=== PATIENT | male | born 1955 | race Caucasian/White ===

== ENCOUNTER 2021-08-25 08:45 | Outpatient (CLI) | payer MEDICARE ==
--- NOTE | 2021-08-25 10:47 | Ultrasound Report ---
PROCEDURE: Aorta Screening INDICATIONS: TOBACCO USE TECHNIQUE: Real time scanning was performed of the aorta and iliac arteries, with image documentatio n. COMPARISON: None. FINDINGS: Aorta: Proximal aortic diameter measures 2.9 x 2.8 cm. Mid-aorta measures 2.1 x 2.1 cm. Distal aor tic diameter is 2.6 x 2.6 cm. Atheromatous change with ectasia. Suggestion of an intimal defect is s een, which may reflect a penetrating ulcer or focal dissection. Iliac arteries: Right common iliac artery measures 1.5 x 1.4 cm. Left common iliac artery measures 1.4 x 1.4 cm. IMPRESSION: 1.Query penetrating ulcer or focal dissection within the aorta. CTA is recommended. Reviewed by: Justin Ogden MD on 08/25/2021 10:46 AM PDT Approved by: Justin Ogden MD on 08/25/2021 10:46 AM PDT Station ID: [id number]
== END 2021-08-25 08:46 | disposition home or self-care (01) ==
LOC: DI 08:45
PROVIDERS: ATTEND Student in an Organized Health Care Education/Training Program
DX: Z13.6 Encounter for screening for cardiovascular disorders (principal); Z72.0 Tobacco use; R93.89 Abnormal findings on diagnostic imaging of other specified body structures

== ENCOUNTER 2021-08-25 15:19 | Outpatient (CLI) | payer MEDICARE ==
[2021-08-25 15:41] LABS: CREATININE 0.7 mg/dL (0.6-1.2)
[2021-08-25] MEDS ORDERED: IOVERSOL 320 100 ML VIAL IVP ONE ×2 (16:04→20:30)
--- NOTE | 2021-08-25 17:29 | CT Report ---
PROCEDURE: ANGIO ABDOMEN W/WO INDICATIONS: DISSECTION OF ABDOMINAL AORTA CONTRAST: IV CONTRAST: Optiray 320 ml: 100 PO CONTRAST: *NO PO CONTRAST TECHNIQUE: After the administration of intravenous contrast, 2.5 mm thick sections acquired from the diaphragm t o the symphysis. 10 mm maximum-intensity projection (MIP) reformats were then acquired. For radiati on dose reduction, the following was used: automated exposure control. COMPARISON: Aortic ultrasound performed the same day. FINDINGS: Image quality: Excellent. Aorta: Proximal abdominal aorta is normal caliber. The mid and distal abdominal aorta is normal evon ivory and demonstrates heavy circumferential mainly noncalcified atherosclerotic change versus thrombus . This results in irregularity of the opacified lumen. The distal aorta, there is a small, less than 5 mm focal protrusion of the anterior serosal surface near the origin of the inferior mesenteric matthew ry. There is underlying noncalcified atherosclerosis versus thrombus and no evidence of active extrav asation. No evidence of dissection. No periaortic inflammation or fluid collections. Mesenteric arteries: Celiac trunk, and superior mesenteric arteries appear patent. The inferior mes enteric artery is not seen arising from the aorta but is opacified by collaterals about a centimeter distal to its origin. Single renal arteries are patent bilaterally. Right pelvic arteries: Mild to moderate mixed calcified and noncalcified atherosclerosis at the righ t iliac artery origin. Internal and external iliac arteries are patent. Left pelvic arteries: Mild to moderate mixed calcified and noncalcified atherosclerosis at the left iliac artery origin. Internal and external iliac arteries are patent. Extravascular soft tissues: There are bibasilar atelectatic changes. No pleural effusions. Heart siz e is normal. Liver and spleen are normal in size and enhancement. Gallbladder is partially decompre ssed and incompletely evaluated. Biliary system is non dilated. Pancreas enhances normally. No adr enal nodules. Kidneys are normal in size and enhancement, without hydronephrosis. Non opacified bow el loops are normal in wall thickness and caliber. No free fluid or air. No retroperitoneal or mese nteric adenopathy. Mildly narrow necked fat-containing periumbilical hernia with slight stranding of the herniated fat.. No suspicious bony lesions. No vertebral body compression fractures. IMPRESSION: 1. Normal caliber aorta with heavy irregular mainly noncalcified circumferential atherosclerosis vers us circumferential thrombus. No evidence of aortic dissection. 2. There is a small focal area of aortic wall outpouching at the thrombosed origin of the inferior me senteric artery. Given NOLAN collateralization, this is likely chronic finding. 3. No evidence of penetrating ulcer or active arterial extravasation. 4. Fat-containing umbilical hernia with mild fat stranding. Correlate clinically as this may be sympt omatic with possible inflammation. Reviewed by: Hazel Stearns MD on 08/25/2021 5:27 PM PDT Approved by: Hazel Stearns MD on 08/25/2021 5:27 PM PDT Station ID: [id number]
== END 2021-08-25 15:20 | disposition home or self-care (01) ==
LOC: DI 15:19
PROVIDERS: ATTEND Student in an Organized Health Care Education/Training Program
DX: R93.89 Abnormal findings on diagnostic imaging of other specified body structures (principal); K42.9 Umbilical hernia without obstruction or gangrene; Z13.6 Encounter for screening for cardiovascular disorders; Z72.0 Tobacco use
CPT/HCPCS: 36415; 74175; 76706; 82565; Q9967

== ENCOUNTER 2023-10-16 12:06 | Emergency (ER) | payer MEDICARE ==
[2023-10-16 12:33] LABS: BASOPHILS % (AUTO) 0.4 %; EOSINOPHILS % (AUTO) 0.4 %; HCT - HEMATOCRIT 46.2 % (42.0-52.0); HGB - HEMOGLOBIN 15.2 g/dL (14.0-18.0); LYMPHOCYTES # (AUTO) 1.2 10^3/uL (1.5-3.5); LYMPHOCYTES % (AUTO) 11.5 %; MEAN CORPUSCULAR HEMOGLOBIN 28.1 pg (27.0-31.0); MEAN CORPUSCULAR HGB CONC 32.9 g/dL (32.0-36.0); MEAN CORPUSCULAR VOLUME 85.4 fL (80.0-94.0); MEAN PLATELET VOLUME 9.3 fL (7.4-11.4); MONOCYTES # (AUTO) 0.5 10^3/uL (0.0-1.0); MONOCYTES % (AUTO) 5.2 %; NEUTROPHILS # (AUTO) 8.6 10^3/uL (1.5-6.6); NEUTROPHILS % (AUTO) 81.8 %; PLT - PLATELET COUNT 232 10^3/uL (130-450); RED BLOOD COUNT 5.41 10^6/uL (4.70-6.10); WHITE BLOOD COUNT 10.5 x10^3/uL (4.8-10.8)
[2023-10-16 12:49] LABS: ALBUMIN 4.7 g/dL (3.2-5.5); ALBUMIN/GLOBULIN RATIO 2.2 (1.0-2.2); BILIRUBIN,TOTAL 0.8 mg/dL (0.2-1.0); CALCIUM 10.2 mg/dL (8.5-10.3); CREATININE 0.7 mg/dL (0.6-1.3); TOTAL PROTEIN 6.8 g/dL (6.4-8.9)
[2023-10-16 15:09] LABS: BILIRUBIN,URINE NEGATIVE (NEGATIVE); GLUCOSE, URINE (UA) >=1000 mg/dL (NEGATIVE); KETONES,URINE (UA) 15 mg/dL (NEGATIVE); LEUKOCYTE ESTERASE, URINE NEGATIVE (NEGATIVE); NITRITE,URINE NEGATIVE (NEGATIVE); OCCULT BLOOD,URINE NEGATIVE (NEGATIVE); PROTEIN,URINE NEGATIVE (NEGATIVE); UROBILINOGEN,URINE 0.2 (NORMAL) E.U./dL (NORMAL)
--- NOTE | 2023-10-16 15:09 | ED Physician Documentation ---
PD HPI ABD PAIN - Stated complaint Stated Complaint: ABD PX - Chief complaint Chief Complaint: Abd Pain - History obtained from History obtained from: Patient - History of Present Illness Pain level max: 9 Pain level now: 0 Quality: Aching, Pain Location: Periumbilical Radiation: Left flank, Right flank Improved by: Laying still Worsened by: Moving, Palpation Associated symptoms: Diarrhea. No: Fever, Nausea, Vomiting, Hematemesis, Melena, Hematochezia, Dysuria, Hematuria Recently seen: Not recently seen - Additional information Additional information: 68-year-old male presents to the emergency department abdominal pain that started yesterday. He states that he has a large umbilical hernia, scheduled to meet with a surgeon at [facility] next week. He has not had any vomiting or nausea but did have diarrhea today. Abdominal cramping and pain starting yesterday, radiating to the bilateral flanks. No urinary symptoms. No blood in the stool. He states he was having severe pain while in the waiting room but the pain has now resolved since he came back to the main area of the emergency department. Review of Systems Constitutional: denies: Fever, Chills Cardiac: denies: Chest pain / pressure Respiratory: denies: Cough GI: denies: Vomiting, Diarrhea, Hematemesis, Bloody / black stool : denies: Dysuria, Frequency, Hesitancy Skin: denies: Rash Musculoskeletal: denies: Neck pain, Back pain Neurologic: denies: Headache PD PAST MEDICAL HISTORY - Past Medical History Past Medical History: Yes Cardiovascular: Hypertension, High cholesterol Endocrine/Autoimmune: Type 2 diabetes : Benign prostate hypertrophy Other Past Medical History: polyps in the urinary tract - Past Surgical History Past Surgical History: No - Present Medications Home Medications: Ambulatory Orders Medication Instructions Recorded Confirmed Doxazosin Mesylate [Cardura Xl] 8 mg PO DAILY 10/16/23 10/16/23 Dutasteride 0.5 mg PO DAILY 10/16/23 10/16/23 Lisinopril [Zestril] 20 mg PO DAILY 10/16/23 10/16/23 Meloxicam 15 mg PO DAILY 10/16/23 10/16/23 Simvastatin [Zocor] 20 mg PO DAILY 10/16/23 10/16/23 - Allergies Allergies/Adverse Reactions: Allergies Allergy/AdvReac Type Severity Reaction Status Date / Time No Known Drug Allergies Allergy Verified 10/16/23 12:20 - Social History Does the pt smoke?: No Smoking Status: Never smoker Does the pt drink ETOH?: No Substance Use and Type: Marijuana - Immunizations Immunizations are current?: Yes PD ED PE NORMAL - Vitals Vital signs reviewed: Yes - General General: Alert and oriented X 3, No acute distress - HEENT HEENT: PERRL, Moist mucous membranes - Neck Neck: Supple, no meningeal sign - Cardiac Cardiac: RRR, Strong equal pulses - Respiratory Respiratory: No respiratory distress, Clear bilaterally - Abdomen Abdomen: Normal bowel sounds, Soft, Non distended, Other (Large left ventral/periumbilical hernia. Easily reducible.) - Back Back: No CVA TTP, No spinal TTP - Derm Derm: Warm and dry - Extremities Extremities: No edema - Neuro Neuro: Alert and oriented X 3 - Psych Psych: Normal mood, Normal affect Results - Vitals Vitals: Vital Signs - 24 hr 10/16/23 10/16/23 10/16/23 12:17 15:17 16:47 Temperature 36.7 C 36.6 C Heart Rate 90 82 78 Respiratory 16 18 17 Rate Blood Pressure 170/82 H 149/75 H 154/75 H O2 Saturation 99 97 96 Oxygen O2 Source Room air - Labs Labs: Laboratory Tests 10/16/23 10/16/23 10/16/23 12:28 12:28 15:02 WBC 10.5 RBC 5.41 Hgb 15.2 Hct 46.2 MCV 85.4 MCH 28.1 MCHC 32.9 RDW 14.0 Plt Count 232 MPV 9.3 Neut # (Auto) 8.6 H Lymph # (Auto) 1.2 L Johnston # (Auto) 0.5 Eos # (Auto) 0.0 Baso # (Auto) 0.0 Absolute Nucleated RBC 0.00 Nucleated RBC % 0.0 Sodium 138 Potassium 4.0 Chloride 104 Carbon Dioxide 25 Anion Gap 9.0 BUN 20 Creatinine 0.7 Estimated GFR (MDRD) 112 Glucose 114 H Calcium 10.2 Total Bilirubin 0.8 AST 10 ALT 19 Alkaline Phosphatase 61 Total Protein 6.8 Albumin 4.7 Globulin 2.1 Albumin/Globulin Ratio 2.2 Lipase 21 Urine Color YELLOW Urine Clarity CLEAR Urine pH 6.0 Ur Specific [place] 1.020 Urine Protein NEGATIVE Urine Glucose (UA) >=1000 H Urine Ketones 15 H Urine Occult Blood NEGATIVE Urine Nitrite NEGATIVE Urine Bilirubin NEGATIVE Urine Urobilinogen 0.2 (NORMAL) Ur Leukocyte Esterase NEGATIVE Ur Microscopic Review NOT INDICATED Urine Culture Comments NOT INDICATED - Rads (name of study) Abdomen/pelvis CT Relevant Findings:: Final report received, See rad report PD Medical Decision Making - ED course Complexity details: reviewed results, re-evaluated patient, considered differential, d/w patient ED course: 60-year-old male presents to the emergency department with abdominal pain starting yesterday, worsening today but resolved when he was brought back to the main emergency department from the waiting room. No vomiting. CT scan does not show any acute abnormalities. Does have some bowel inside the hernia sac. No evidence of incarceration currently. The hernia is easily reducible. Possible that there was stool stuck in the loop of bowel that is in the hernia and that caused pain. He states he takes Ex-Lax daily to help prevent any constipation. Recommend that he drink plenty of fluids at home. Recommend that he follow-up with his surgeon on Tuesday as scheduled. Recommend that he return if he worsens including worsening pain, unable to reduce the hernia or any new or worrisome symptoms. No evidence of perforation or abscess. Patient counseled regarding signs and symptoms for which I believe and urgent re- evaluation would be necessary. Patient with good understanding of and agreement to plan and is comfortable going home at this time This document was made in part using voice recognition software. While efforts are made to proofread this document, sound alike and grammatical errors may occur. Departure - Departure Disposition: Home, Self Care Clinical Impression: Ventral hernia without obstruction or gangrene Condition: Good Instructions: ED Hernia Inguinal Follow-Up: TYSHAWN STERN MD [Primary Care Provider] - Comments: Please follow-up with your surgeon on Tuesday as scheduled. Please return if you develop increasing pain, are unable to push the hernia back and or other new or worrisome problems. Your CT scan is below. EXAM: [id number] CT/ABPEW ([id number]) PROCEDURE: CT abdomen pelvis with contrast INDICATIONS: LLQ abd pain TECHNIQUE: Helical axial CT of the abdomen and pelvis was obtained after intravenous contrast administration and reformatted in multiple planes. Radiation dose reduction was achieved using automated exposure control or adjustment of mA and/or kV according to patient size. COMPARISON: 10/25/2021 FINDINGS: Lower thorax: The lung bases are clear. Heart size normal. No hiatal hernia. Liver: Normal in size and attenuation. No contour deformity present. Biliary system: No calcified cholelithiasis or pericholecystic inflammation. No evidence of bile duct dilatation. Pancreas: Unremarkable without mass or inflammation evident. Spleen: Normal in size and density. Adrenals: Normal morphology and density. Reproductive system: Unremarkable as visualized. Urinary system: Normal renal size and attenuation. No renal calculi, hydronephrosis, or solid mass present. Urinary bladder unremarkable. Gastrointestinal system: The bowel appears unremarkable with no evidence of bowel obstruction or inflammation. The stomach appears unremarkable. Multiple diverticula arise from the sigmoid colon without evidence of diverticulitis. Peritoneal spaces: No mesenteric or retroperitoneal adenopathy. No free air. No free fluid. Vasculature: The IVC, aorta and iliac vasculature are unremarkable. Abdominal wall: No ventral hernia contains bowel and peritoneal fat without obstruction. Musculoskeletal: Normal bone mineralization. No acute fractures. IMPRESSION: Mild sigmoid diverticulosis without evidence of diverticulitis. No bowel obstruction or abscess. No free air. Ventral hernia contains bowel without obstruction Forms: PCP List Discharge Date/Time: 10/16/23 16:49
[2023-10-16 15:13] LABS: CLARITY,URINE CLEAR (CLEAR)
[2023-10-16] MEDS ORDERED: iohexoL-300 100 ML VIAL ONE (15:13)
[2023-10-16] MEDS: iohexoL-300 100 ML VIAL IVP ONE (15:40)
--- NOTE | 2023-10-16 15:54 | CT Report ---
PROCEDURE: CT abdomen pelvis with contrast INDICATIONS: LLQ abd pain TECHNIQUE: Helical axial CT of the abdomen and pelvis was obtained after intravenous contrast adminis tration and reformatted in multiple planes. Radiation dose reduction was achieved using automated exp osure control or adjustment of mA and/or kV according to patient size. COMPARISON: 10/25/2021 FINDINGS: Lower thorax: The lung bases are clear. Heart size normal. No hiatal hernia. Liver: Normal in size and attenuation. No contour deformity present. Biliary system: No calcified cholelithiasis or pericholecystic inflammation. No evidence of bile du ct dilatation. Pancreas: Unremarkable without mass or inflammation evident. Spleen: Normal in size and density. Adrenals: Normal morphology and density. Reproductive system: Unremarkable as visualized. Urinary system: Normal renal size and attenuation. No renal calculi, hydronephrosis, or solid mass p resent. Urinary bladder unremarkable. Gastrointestinal system: The bowel appears unremarkable with no evidence of bowel obstruction or inf lammation. The stomach appears unremarkable. Multiple diverticula arise from the sigmoid colon witho ut evidence of diverticulitis. Peritoneal spaces: No mesenteric or retroperitoneal adenopathy. No free air. No free fluid. Vasculature: The IVC, aorta and iliac vasculature are unremarkable. Abdominal wall: No ventral hernia contains bowel and peritoneal fat without obstruction. Musculoskeletal: Normal bone mineralization. No acute fractures. IMPRESSION: Mild sigmoid diverticulosis without evidence of diverticulitis. No bowel obstruction or abscess. No f ree air. Ventral hernia contains bowel without obstruction Reviewed by: Cecil Alcala MD on 10/16/2023 2:53 PM AKDT Approved by: Cecil Alcala MD on 10/16/2023 2:53 PM AKDT Station ID: [id number]
[2023-10-16 16:52] VITALS: BP 154/75; O2SAT 96
== END 2023-10-16 16:49 | disposition home or self-care (01) ==
LOC: ED 12:06
DX: K43.9 Ventral hernia without obstruction or gangrene (principal)
CPT/HCPCS: 36415; 74177; 80053; 81003; 83690; 85025; 99283; 99284; Q9967; 81001; 87086

== ENCOUNTER 2023-12-22 12:40 | Outpatient (CLI) | payer MEDICARE ==
[2023-12-22] MEDS ORDERED: iohexoL-300 150 ML BOTTLE ONE (12:47)
[2023-12-22] MEDS: iohexoL-300 100 ML VIAL IVP ONE (13:57)
--- NOTE | 2023-12-22 17:19 | CT Report ---
PROCEDURE: IVP INDICATIONS: HEMTURIA CONTRAST: 140ml [id number] TECHNIQUE: A [address] of the abdomen and pelvis was performed. Non-contrast and contrast images were recorded and evaluated at appropriate window settings. Images were recorded and evaluated at appropriate windo w settings. Reformats: coronal and sagittal. For radiation dose reduction, the following was used: au tomated exposure control, adjustment of mA and/or kV according to patient size. COMPARISON: 10/16/2023, 08/25/2021 FINDINGS: Image quality: Diagnostic. Lower chest: Unremarkable. Liver: Mild hepatic steatosis. Gallbladder: No radiopaque stones or wall thickening. Biliary tree: No intrahepatic or extrahepatic dilation, accounting for age. Spleen: No splenomegaly. Pancreas: No pancreatic ductal dilation. Adrenals: No adrenal nodule. Kidneys and ureters: Both kidneys are normal in size. No hydronephrosis or nephrolithiasis on pre-con trast images. No solid masses or complex cysts which require follow up. The opacified renal calyces and ureters appear normal, without filling defect. Stomach, bowel and peritoneum: Stomach and small bowel are normal. Normal quantity of stool in the co velia. No colon wall thickening. No free fluid or free air. There is moderate mesenteric fat stranding centrally underlying fat-containing umbilical hernia. Abdominal Lymph nodes: No central or retroperitoneal adenopathy. Vessels: Normal caliber abdominal aorta, IVC, and portal vein. Patent portal vein. Reproductive organs: Normal sized prostate gland. Bladder: Slightly distended urinary bladder with normal wall thickness. No calcified bladder stones. No filling defect within the opacified bladder. Pelvic Lymph nodes: Unremarkable. Bones: No suspicious bone lesions. Moderate degenerative changes in both femoral acetabular joints an d disc degeneration in the lower lumbar spine. Partial sacralization of the right L5 transverse proce ss. Other: Fat-containing umbilical hernia with a neck measuring about 2 cm in diameter. There is underly ing congestion of the mesentery suggesting traction on mesenteric vascular structures. No fluid in th e hernia sac. IMPRESSION: No urinary calcifications or evidence of obstructive uropathy. No bladder abnormality. Fat-containing umbilical hernia with underlying mesenteric inflammation. Correlate clinically.. Reviewed by: Hazel Stearns MD on 12/22/2023 5:18 PM PDT Approved by: Hazel Stearns MD on 12/22/2023 5:18 PM PDT Station ID: [id number]
== END 2023-12-22 12:41 | disposition home or self-care (01) ==
LOC: DI 12:40
PROVIDERS: ATTEND Physician Assistant Medical
DX: R31.0 Gross hematuria (principal); K42.9 Umbilical hernia without obstruction or gangrene
CPT/HCPCS: 74178; Q9967